=== PATIENT | female | born 1980 | race American Indian/Alaskan Native ===

== ENCOUNTER 2022-01-15 21:44 | Emergency (ER) | payer OTHER ==
[2022-01-15 23:20] VITALS: BP 132/91
[2022-01-16] MEDS ORDERED: predniSONE 20 MG TAB PO ONE (04:24)
[2022-01-16] MEDS ORDERED: IBUPROFEN 600 MG TAB PO ONE (04:24)
[2022-01-16] MEDS ORDERED: ACETAMINOPHEN 500 MG TAB PO ONE (04:25)
[2022-01-16] MEDS ORDERED: MUPIROCIN 2% OINT 22 GM TP ONE (04:25)
--- NOTE | 2022-01-16 04:31 | Emergency Department Report ---
ED Allergic Reaction HPI - General Chief complaint: Allergic Reaction Stated complaint: ALLERGIC REACTION Source: patient Mode of arrival: Ambulatory Limitations: No Limitations - History of Present Illness Initial Comments: Patient is a 41-year-old -Greek female with no past medical history who presents to the ED with complaint of acute onset persistent painful swollen erythematous itchy maculopapular blister dorsal bilateral feet for the last 12 hours after she may have been bitten by unknown insect when walking with open shoes at a public gathering. Patient states that the swelling and the blisters have increased in size in the last 6 hours. Patient denies swollen lips or tongue, dysphagia, dysphonia, facial swelling, nausea and vomiting or diarrhea, abdominal pain, fever, chills, chest pain or shortness of breath and wheezing, numbness and tingling or weakness of bilateral feet. MD Complaint: allergic reaction, other (bilateral foot swelling, erythematous blistered rashes) -: Sudden, hour(s) (12) Exposure: insect bite Symptoms: rash, itching, other (Bilateral dorsal foot swelling and erythematous blistered rashes). denies: facial swelling, lip swelling, difficulty swallowing, difficulty breathing, orolingual swelling, hoarseness, syncopy, naus ea, vomiting Severity: severe Treatment Prior to Arrival: none Previous Allergy History: none - Related Data Previous Rx's Medication Instructions Recorded Last Taken Type Famotidine [Pepcid] 20 mg PO BID #40 tablet 01/16/22 Unknown Rx Ibuprofen [Motrin] 800 mg PO Q8HR PRN #30 tablet 01/16/22 Unknown Rx Mupirocin [Bactroban 2% OINT] 1 applic TP TID #1 tube 01/16/22 Unknown Rx cephALEXin [Keflex] 500 mg PO Q8HR #30 cap 01/16/22 Unknown Rx diphenhydrAMINE [Benadryl CAP] 25 mg PO Q6HR PRN #40 capsule 01/16/22 Unknown Rx predniSONE [Deltasone] 60 mg PO QDAY #15 tab 01/16/22 Unknown Rx Allergies Allergy/AdvReac Type Severity Reaction Status Date / Time No Known Allergies Allergy Verified 01/15/22 23:22 ED Review of Systems ROS: Stated complaint: ALLERGIC REACTION Other details as noted in HPI Constitutional: denies: chills, fever Eyes: denies: eye pain, eye discharge, vision change ENT: denies: ear pain, throat pain Respiratory: denies: cough, shortness of breath, wheezing Cardiovascular: denies: chest pain, palpitations Endocrine: no symptoms reported Gastrointestinal: denies: abdominal pain, nausea, diarrhea Genitourinary: denies: urgency, dysuria, discharge Musculoskeletal: arthralgia (bilateral dorsal foot swelling, erythematous blistered rashes), myalgia. denies: back pain, joint swelling Skin: rash (erythematous maculopapular urticarial blistered), change in color, pruritus. denies: lesions Neurological: denies: headache, weakness, paresthesias Psychiatric: denies: anxiety, depression Hematological/Lymphatic: denies: easy bleeding, easy bruising ED Past Medical Hx - Past Medical History Previous Medical History?: No - Surgical History Past Surgical History?: No - Social History Smoking Status: Never Smoker Substance Use Type: None - Medications Home Medications: Home Medications Medication Instructions Recorded Confirmed Last Taken Type Famotidine [Pepcid] 20 mg PO BID #40 tablet 01/16/22 Unknown Rx Ibuprofen [Motrin] 800 mg PO Q8HR PRN #30 tablet 01/16/22 Unknown Rx Mupirocin [Bactroban 2% OINT] 1 applic TP TID #1 tube 01/16/22 Unknown Rx cephALEXin [Keflex] 500 mg PO Q8HR #30 cap 01/16/22 Unknown Rx diphenhydrAMINE [Benadryl CAP] 25 mg PO Q6HR PRN #40 capsule 01/16/22 Unknown Rx predniSONE [Deltasone] 60 mg PO QDAY #15 tab 01/16/22 Unknown Rx ED Physical Exam - General Limitations: No Limitations General appearance: alert, in no apparent distress - Head Head exam: Present: atraumatic, normocephalic, normal inspection - Eye Eye exam: Present: normal appearance, PERRL, EOMI Pupils: Present: normal accommodation - ENT ENT exam: Present: normal exam, normal orophraynx, mucous membranes moist, TM's normal bilaterally, normal external ear exam - Neck Neck exam: Present: normal inspection, full ROM. Absent: tenderness - Respiratory Respiratory exam: Present: normal lung sounds bilaterally. Absent: respiratory distress, wheezes, rales, rhonchi, chest wall tenderness, accessory muscle use, decreased breath sounds, prolonged expiratory - Cardiovascular Cardiovascular Exam: Present: regular rate, normal rhythm, normal heart sounds. Absent: systolic murmur, diastolic murmur, rubs, gallop - GI/Abdominal GI/Abdominal exam: Present: soft, normal bowel sounds. Absent: tenderness, guarding, rebound, hyperactive bowel sounds, hypoactive bowel sounds, organomegaly, mass - Extremities Exam Extremities exam: Present: normal inspection, full ROM, tenderness (Palpable bilateral foot tenderness due to erythematous maculopapular blistered tender rashes), pedal edema. Absent: joint swelling, calf tenderness - Back Exam Back exam: Present: normal inspection, full ROM. Absent: tenderness, CVA tenderness (R), CVA tenderness (L), muscle spasm, paraspinal tenderness, vertebral tenderness - Neurological Exam Neurological exam: Present: alert, oriented X3, CN II-XII intact, normal gait, reflexes normal - Psychiatric Psychiatric exam: Present: normal affect, normal mood - Skin Skin exam: Present: warm, dry, intact, normal color, rash (Erythematous maculopapular blistered urticarial rashes on bilateral dorsal feet), erythema, urticaria ED Course Vital Signs 01/15/22 23:19 Temperature 97.7 F Pulse Rate 70 Respiratory 150 H Rate Blood Pressure 132/91 O2 Sat by Pulse 100 Oximetry ED Medical Decision Making - Medical Decision Making This is a 41-year-old -Greek female with no past medical history who presents to the ED with complaint of acute onset persistent painful swollen erythematous itchy maculopapular blister dorsal bilateral feet for the last 12 hours after she may have been bitten by unknown insect when walking with open shoes at a public gathering. Patient states that the swelling and the blisters have increased in size in the last 6 hours. In the ED, patient is alert and oriented x3 and is not in any distress. Patient was treated in the ED for suspected acute allergic reaction and was discharged home on medications in cluding prophylactic antibiotics. Patient was advised to follow-up with her primary care physician in 7 to 10 days for reevaluation or return to the ED immediately if symptoms get worse. - Differential Diagnosis Insect bite allergy; cellulitis; acute allergic reaction; acute urticaria Critical care attestation.: If time is entered above; I have spent that time in minutes in the direct care of this critically ill patient, excluding procedure time. ED Disposition Clinical Impression: Acute urticaria, Allergy to insect bites and stings, Localized swelling of both feet, Cellulitis of both feet Disposition: 01 HOME / SELF CARE / HOMELESS Is pt being admited?: No Does the pt Need Aspirin: No Condition: Stable Instructions: Allergies, Adult, [id number], Cellulitis, Adult, [id number], Rash, Adult, [id number], Hives, [id number] Additional Instructions: Take medication with food, drink plenty of fluids, follow-up with your primary care physician in 7 to 10 days for reevaluation. Return to the ED immediately if symptoms get worse. Prescriptions: Mupirocin [Bactroban 2% OINT] 1 applic TP TID #1 tube diphenhydrAMINE [Benadryl CAP] 25 mg PO Q6HR PRN #40 capsule PRN Reason: Itching and swelling predniSONE [Deltasone] 60 mg PO QDAY #15 tab cephALEXin [Keflex] 500 mg PO Q8HR #30 cap Ibuprofen [Motrin] 800 mg PO Q8HR PRN #30 tablet PRN Reason: Pain , Severe (7-10) Famotidine [Pepcid] 20 mg PO BID #40 tablet Referrals: [facility] [Provider Group] - 7-10 days Time of Disposition: 04:33 Print Language: GUYANESE
== END 2022-01-16 05:30 | disposition home or self-care (01) ==
LOC: ED 21:44
DX: T63.481A Toxic effect of venom of other arthropod, accidental (unintentional), initial encounter (principal); L50.9 Urticaria, unspecified; L03.116 Cellulitis of left lower limb; L03.115 Cellulitis of right lower limb; M79.89 Other specified soft tissue disorders; Y92.89 Other specified places as the place of occurrence of the external cause
CPT/HCPCS: 99282